=== PATIENT | male | born 1990 | race African-American/Black ===

== ENCOUNTER 2021-03-06 13:07 | Emergency (ER) | payer BC ==
[~2021-03-06] VITALS: Ht 167.6 cm; Wt 68.1 kg
[2021-03-06 14:18] VITALS: BP 117/72
[2021-03-06 15:11] LABS: BILIRUBIN,URINE NEG (NEG); CLARITY,URINE CLEAR; COLOR,URINE YELLOW; GLUCOSE,URINE NEG (NEG); UROBILINOGEN,URINE 0.2 mg/dL (0.2 mg/dL)
[2021-03-06 15:12] LABS: BACTERIA,URINE 0 /HPF (0-FEW); NITRITE,URINE NEG (NEG); RBC,URINE 0 /HPF (0-2); WBC,URINE 0 /HPF (0-4)
--- NOTE | 2021-03-06 15:37 | PHYS DOC ---
Past History Past Surgical History: No Surgical History Adult General Chief Complaint Chief Complaint: PENIS PROBLEM HPI HPI Patient is a 30-year-old male presents emergency department complaining of bumps on his penis that he noticed this morning when he woke up. Patient denies these bumps being itchy or painful. Denies penile discharge, denies other sores on his penis or genitals. Patient denies nausea, vomiting, diarrhea, denies rashes to the soles of his feet or the palms of his hand, denies other rashes of his sk in, denies fever or chills. Denies other physical complaints or physical concerns. Patient reports monogamous sexual relationship unprotected sex. Denies history of cigarette smoking, drinks occasionally, denies illicit drug use, denies history of IV drug use. Review of Systems Review of Systems 14 body systems of review of systems have been reviewed. See HPI for pertinent positives and negative responses, otherwise all other systems are negative, nonpertinent or noncontributory. Constitutional: Negative except as outlined in HPI above. Skin: Negative except as outlined in HPI above. Eyes: Negative except as outlined in HPI above. HENT: Negative except as outlined in HPI above. Respiratory: Negative except as outlined in HPI above. Cardiovascular: Negative except as outlined in HPI above. GI: Negative except as outlined in HPI above. : Negative except as outlined in HPI above. Musculoskeletal: Negative except as outlined in HPI above. Integument: Negative except as outlined in HPI above. Neurologic: Negative except as outlined in HPI above. Endocrine: Negative except as outlined in HPI above. Lymphatic: Negative except as outlined in HPI above. Psychiatric: Negative except as outlined in HPI above. Allergies Allergies Allergies Coded Allergies Type Severity Reaction Last Updated Verified No Known Drug Allergies 03/06/21 No Physical Exam Physical Exam Constitutional: Well developed, well nourished, no acute distress, non-toxic appearance. 30-year-old male in no apparent distress. HENT: Normocephalic, atraumatic. Eyes: Conjunctiva normal, no discharge. Neck: Normal range of motion. Cardiovascular: Distal cap refill less than 2 seconds, no cyanosis appreciated. Lungs & Thorax: Patient is in no respiratory distress, no adventitious lung sounds appreciated. Abdomen: Bowel sounds normal, soft, no tenderness, no masses, no pulsatile masses. No bruising or skin discoloration of the abdomen. Skin: Warm, dry, no erythema, no rash. Back: No tenderness, no CVA tenderness. Extremities: No tenderness, no cyanosis, no clubbing, ROM intact, no edema. Neurologic: Alert and oriented X 3, normal motor function, normal sensory function, no focal deficits noted. Psychologic: Affect normal, judgement normal, mood normal. : Exam of penis and genitals, the patient is circumcised, there are four 1 mm in diameter sessile wart lesions to the left lateral shaft of penis, these lesions are not open, they are not draining. Nonerythematous, consistent skin color with patient. No other lesions or warts or rashes appreciated of the genitals. Current Patient Data Vital Signs Vital Signs Date Time Temp Pulse Resp B/P (MAP) Pulse Ox O2 Delivery O2 Flow Rate FiO2 03/06/21 14:18 98.0 82 16 117/72 (87) 99 Room Air Lab Results Laboratory Tests Test 03/06/21 14:30 Urine Collection Type Clean catch Urine Color Yellow Urine Clarity Clear Urine pH 8.5 Urine Specific [place] 1.020 Urine Protein Neg (NEG-TRACE) Urine Glucose (UA) Neg mg/dL (NEG) Urine Ketones (Stick) Neg mg/dL (NEG) Urine Blood Neg (NEG) Urine Nitrite Neg (NEG) Urine Bilirubin Neg (NEG) Urine Urobilinogen Dipstick 0.2 mg/dL (0.2 mg/dL) Urine Leukocyte Esterase Neg (NEG) Urine RBC 0 /HPF (0-2) Urine WBC 0 /HPF (0-4) Urine Bacteria 0 /HPF (0-FEW) EKG EKG [] Radiology/Procedures Radiology/Procedures [] Heart Score C/O Chest Pain: No Risk Factors: Risk Factors: DM, Current or recent (<one month) smoker, HTN, HLP, family history of CAD, obesity. Risk Scores: Risk Factors: DM, Current or recent (<one month) smoker, HTN, HLP, family history of CAD, obesity. Course & Med Decision Making Course & Med Decision Making Pertinent Labs and Imaging studies reviewed. (See chart for details) 30-year-old male, vital signs reviewed, presents to the emergency department concerning bumps on his penis. Physical examination consistent with genital warts. Discussed findings with patient, recommended follow-up with dermatology for management and removal of warts. Discussed with patient safe sex practices, barrier protection sex, return to ER precautions or concerns, patient gave verbal understanding of and is amenable to ED discharge planning. Genital warts are sessile in nature, there is no complaint of pain or pruritus, this is unlikely a squamous cell carcinomas, skin tag, molluscum contagiosum, condyloma Lotta, angiofibroma, or HSV 1/2. Dragon Disclaimer Dragon Disclaimer This electronic medical record was generated, in whole or in part, using a voice recognition dictation system. Departure Departure: Impression: Primary Impression: Genital warts Disposition: HOME / SELF CARE / HOMELESS Condition: GOOD Referrals: PCP,NO (PCP) Patient Instructions: Genital Warts Additional Instructions: You are seen today in the emergency department for bumps on your penis. These appear to be genital warts. As we discussed, please use condoms barrier sex during sexual activity to help prevent the spread of sexually transmitted dis eases. As we discussed, please follow-up with a lining machine operator or a surgeon to have these evaluated for removal. You may consider using the [facility] dermatology of [facility] located at [address] [place] [address], their telephone number is area code [phone], call tomorrow for an appointment to be seen soon. Return to the emergency department for worsening symptoms or other concerns. Thank you for visiting our Emergency Department. It was a pleasure taking care of you today in the emergency department and we appreciate you trusting us with your care. If any additional problems come up don't hesitate to return to visit us. Please follow up with your primary care provider so they can plan additional care if needed and know about the problem that you had. If symptoms worsen come back to the Emergency Department. Any concerning symptoms that start such as chest pain, shortness of air, weakness or numbness on one side of the body, running high fevers or any other concerning symptoms return to the ER. TAY CERNA APRN Mar 06, 2021 15:36
== END 2021-03-06 15:53 | disposition home or self-care (01) ==
LOC: ER 13:07
DX: B07.8 Other viral warts (principal)
CPT/HCPCS: 36415; 81001; 87491; 87591; 99283